=== PATIENT | male | born 1940 | race Caucasian/White ===

== ENCOUNTER 2017-06-02 07:09 | Outpatient (CLI) | payer MEDICARE, BC ==
--- NOTE | 2017-06-02 12:23 | NM ---
HEPATOBILIARY STUDY: Date: 06-02-17 History: Unspecific abdominal pain. Radiopharmaceutical: 4.9 mCi Technetium 99M Mebrofenin IV 8 ounces of Ensure was administered orally for the functional portion of the hepatobiliary study. FINDINGS: There is normal uptake and excretion of radiotracer by the liver. Gallbladder activity is faintly vis ualized by 9 minutes with increasing activity in the gallbladder imaging up to 60 minutes. Bowel acti vity is visualized by 31 minutes. After 60 minutes of imaging, Ensure was administered orally and gal lbladder ejection fraction of 71% was obtained. A normal gallbladder ejection fraction is greater maddy n 33%. IMPRESSION: 1. No evidence of a cystic or common duct obstruction. 2. Normal gallbladder ejection fraction. POS: [facility]
== END 2017-06-02 07:10 | disposition home or self-care (01) ==
LOC: NM 07:09
PROVIDERS: ATTEND Family Medicine
DX: R10.9 Unspecified abdominal pain (principal)
CPT/HCPCS: 78227; A9537

== ENCOUNTER 2021-04-22 09:25 | Outpatient (CLI) | payer MEDICARE ==
[2021-04-22 12:32] LABS: Hemoglobin 14.1 g/dL (13.5-17.5); Mean Corpuscular HGB CONC 33.8 g/dL (32.0-36.0); Mean Corpuscular Hemoglobin 31.1 pg (27.0-33.0); Mean Corpuscular Volume 92.1 fl (81.2-95.1); Mean Platelet Volume 11.3 fl (7.4-10.4); Platelet Count 172 10x3/uL (150-450); RBC Distribution Width 11.8 % (11.5-14.5); Red Blood Cell (RBC) Count 4.53 10x6/uL (4.32-5.72); White Blood Cell (WBC) Count 6.4 10x3/uL (3.5-10.5)
[2021-04-22 13:20] LABS: Anion Gap 14 mmol/L (10-20); BUN (Urea Nitrogen) 21 mg/dL (8.4-25.7); Calc. Creatinine Clearance 0 mL/min (70-130); Calcium 9.6 mg/dL (7.8-10.44); Carbon Dioxide 25 mmol/L (23-31); Chloride 105 mmol/L (98-107); Glucose 102 mg/dL (83-110); Potassium 4.4 mmol/L (3.5-5.1); Sodium 140 mmol/L (136-145)
[2021-04-23 00:58] LABS: SARS-CoV-2 PCR by NAA Not Detected (NotDetected)
== END 2021-04-22 09:26 | disposition home or self-care (01) ==
LOC: LABBT 09:25
PROVIDERS: ATTEND Specialist
DX: Z01.818 Encounter for other preprocedural examination (principal); C44.212 Basal cell carcinoma of skin of right ear and external auricular canal; Z85.828 Personal history of other malignant neoplasm of skin; Z20.822 Contact with and (suspected) exposure to COVID-19
CPT/HCPCS: 80048; 85027; 93005; U0003; U0005; 93010

== ENCOUNTER 2021-04-25 11:31 | Day surgery (SDC) | payer MEDICARE ==
[2021-04-24 14:05] VITALS: BMI 29.8
[2021-04-25] MEDS ORDERED: Lidocaine 1% w/Epinephrine 1:100K 20 ML VIAL ONE (14:18)
[2021-04-25] MEDS ORDERED: Fentanyl 100 MCG/2 ML VIAL ONE (14:31)
[2021-04-25] MEDS ORDERED: Ondansetron PF 4 MG/2 ML Vial ONE (14:37)
[2021-04-25] MEDS ORDERED: Lidocaine 1% PF 5 ML VIAL ONE (14:37)
== END 2021-04-25 16:18 | disposition home or self-care (01) ==
LOC: SDC 11:31
PROVIDERS: ATTEND Specialist
PROC: 0HB2XZZ Excision of Right Ear Skin, External Approach (ICD-10-PCS; principal; 2021-04-25)
PROC: 0HX2XZZ Transfer Right Ear Skin, External Approach (ICD-10-PCS; 2021-04-25)
DX: C44.222 Squamous cell carcinoma of skin of right ear and external auricular canal (principal); L57.0 Actinic keratosis; L57.8 Other skin changes due to chronic exposure to nonionizing radiation; K21.9 Gastro-esophageal reflux disease without esophagitis; I48.91 Unspecified atrial fibrillation; I48.92 Unspecified atrial flutter; E78.5 Hyperlipidemia, unspecified; I10 Essential (primary) hypertension; E78.00 Pure hypercholesterolemia, unspecified; Z85.828 Personal history of other malignant neoplasm of skin; Z79.01 Long term (current) use of anticoagulants; Z79.899 Other long term (current) drug therapy; Z88.5 Allergy status to narcotic agent
CPT/HCPCS: 88305; 88331; 88332; J2405; J3010

== ENCOUNTER 2024-07-14 14:45 | Outpatient (CLI) | payer MEDICARE | END 2024-07-14 14:46 | disposition home or self-care (01) | LOC: SCSRAD 14:45 | PROVIDERS: ATTEND Family Medicine | DX: R05.3 Chronic cough (principal) | CPT/HCPCS: 71046 ==